=== PATIENT | female | born 1940 | race Caucasian/White ===

== ENCOUNTER 2017-08-27 09:59 | Emergency (ER) | payer MEDICARE, MEDICAID ==
[2017-08-27] MEDS ORDERED: APAP/HYDROCODONE 325/5 TAB PO ONE (10:35)
[2017-08-27 11:15] VITALS: BP 121/63
--- NOTE | 2017-08-27 11:27 | ER Report ---
History and Physical Time Seen By MD: 10:00 Hx. of Stated Complaint: patient has a j/g tube that was dislodged last night. 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 She has a G/ J tube. She is from [facility] and was about to leave for a trip to [place] last night when her to became dislodged at home back in [place]. She made the decision to leave the tube out, and started her trip towards [place] with her daughter. Not only did she have copious amounts of gastric contents spilling outside her abdomen, she was instructed by her surgeon this morning to stop at the nearest emergency department to have either a new tube or a Sloan catheter placed at the site. She is set to have a revision of the area next week when she returns from her trip to [place]. She does still take some by mouth but the tube was placed for additional nutrition given that her weight got below 85 pounds. Allergies: Coded Allergies: piperacillin (Verified Allergy, Severe, 08/27/17) tazobactam (Verified Allergy, Severe, 08/27/17) codeine (Verified Allergy, Intermediate, 08/27/17) povidone-iodine (Verified Allergy, Intermediate, 08/27/17) soap (Verified Allergy, Intermediate, 08/27/17) Home Meds Reported Medications Mirtazapine (MIRTAZAPINE) 15 Mg Tablet, 15 MG PO QHS 08/27/17 Gabapentin (GABAPENTIN) 300 Mg Capsule, 600 MG PO Q6H, CAPSULE 08/27/17 Pantoprazole Sodium (PANTOPRAZOLE SODIUM) 40 Mg Tablet.dr, 40 MG PO BID, TAB.SR 08/27/17 Aspirin (ASPIR 81) 81 Mg Tablet.dr, 81 MG PO QDAY, TAB 08/27/17 Pentoxifylline (PENTOXIFYLLINE) 400 Mg Tabsr, 400 MG PO TID 08/27/17 Ferrous Sulfate (FERROUS SULFATE) 325 Mg Tablet, 325 MG PO BID 08/27/17 Simvastatin (SIMVASTATIN) 20 Mg Tablet, 20 MG PO HS, TAB 08/27/17 Magnesium Oxide (MAGNESIUM OXIDE) 400 Mg Tablet, 400 MG PO TID 08/27/17 Cilostazol (CILOSTAZOL) 100 Mg Tablet, 100 MG PO QHS 08/27/17 Folic Acid (FOLIC ACID) 1 Mg Tablet, 1 MG PO QDAY, TAB 08/27/17 Hydroxychloroquine Sulfate (HYDROXYCHLOROQUINE SULFATE) 200 Mg Tablet, 200 MG PO QDAY 08/27/17 Bisoprolol Fumarate (BISOPROLOL FUMARATE) 5 Mg Tablet, 5 MG PO QDAY, #10 TAB 08/27/17 Cholecalciferol (Vitamin D3) (VITAMIN D3) 1,000 Unit Tablet, 1000 UNIT PO QDAY, TAB 08/27/17 Spironolactone (SPIRONOLACTONE) 25 Mg Tablet, 25 MG PO QDAY, TAB 08/27/17 Digoxin (DIGOXIN) 125 Mcg Tablet, 125 MCG PO QDAY 08/27/17 Reviewed Nurses Notes: Yes Hx Smoking: Yes Smoking Status: Former Smoker Exposure to Second Hand Smoke?: No Hx Substance Use Disorder: No Hx Alcohol Use: No Constitutional Vital Sign - Last 24 Hours 08/27/17 08/27/17 10:08 11:15 Temp 98.4 Pulse 72 95 Resp 20 B/P (MAP) 131/75 121/63 (82) Pulse Ox 96 O2 Delivery Room Air Physical Exam General Appearance: The patient is alert, has no immediate need for airway protection and no current signs of toxicity. Eyes: Pupils equal and round no injection. Respiratory: Chest is non tender, lungs are clear to auscultation. Cardiac: regular rate and rhythm Gastrointestinal: Abdomen is soft and non tender, no masses, bowel sounds normal. There is a stoma where the G/J tube used to be. Stomach contents is expelling from the site. The surrounding skin is erythematous and irritated. There is a small hole (.5mm) at the bottom of the stoma where stomach contents is also leaking. Skin: No rashes or lesions. DIFFERENTIAL DIAGNOSIS: After history and physical exam differential diagnosis was considered for cellulitis, tube displacement, infection Medical Decision Making ED Course/Re-evaluation ED Course This is a very pleasant 76-year-old female who is currently in route from [facility] to [place]. Her G/J tube fell out approximately 12 hours ago while she was at home. She did not bring the tube with her to the emergency department. Her plan was to just leave the tube out considering she is set for a revision of the site in one week when she returns from her trip. However when she called her surgeon this morning they told her to come to the emergency department to have a Sloan catheter placed in the site. I spoke with Suhail is the nurse at the surgeon's office. I explained to Josh that not only was the tube out of place but there is also stable at the base of the stoma her stomach contents were leaking. She is aware of the small at the bottom of the stoma, and said the plan was to have a revision done more immediately but the patient wanted to go on her trip. I told Josh that I had placed a 16 English Sloan catheter at the site without complications. I offered to go ahead and place a suture at the other open site that was also leaking, and the nurse at the surgeon's office said that would be a great thing to do. I sutured the area after 5 ml of lidocaine with epi. I placed 2 interrupted 2-0 silk sutures and closed the defect that had been leaking the stomach contents. There was no futhre leaking. I cleaned the area, placed a barrier cream, and dressed the area with 4x4's. She will follow up with her surgeon next week as planned. Decision to Disposition Date: Aug 27, 2017 Decision to Disposition Time: 13:00 Depart Departure Latest Vital Signs Vital Signs Date Time Temp Pulse Resp B/P (MAP) Pulse Ox O2 Delivery O2 Flow Rate FiO2 08/27/17 11:15 95 121/63 (82) 96 Room Air 08/27/17 10:08 98.4 20 Impression: Primary Impression: Attention to G-tube Condition: Improved Disposition: HOME OR SELF-CARE Departure Forms: ER Transition Record, Medications Reconciliation, Patient Portal Information Additional Instructions: If the G tube becomes dislodged, try to replace and refill the balloon. Keep area clean and dry LIZZIE FISHMAN MD Aug 27, 2017 11:27
[2017-08-27] MEDS ORDERED: CHOL10005 PO (11:53)
[2017-08-27] MEDS ORDERED: FOLI-68 PO (11:53)
[2017-08-27] MEDS ORDERED: HYDR200T42 PO (11:53)
[2017-08-27] MEDS ORDERED: CILO100T25 PO (11:53)
[2017-08-27] MEDS ORDERED: BISO5TAB23 PO (11:53)
[2017-08-27] MEDS ORDERED: SPIR25TA78 PO (11:53)
[2017-08-27] MEDS ORDERED: DIGO125T73 PO (11:53)
[2017-08-27] MEDS ORDERED: GABA-549 PO (11:54)
[2017-08-27] MEDS ORDERED: PANT40TA65 PO (11:54)
[2017-08-27] MEDS ORDERED: MAGN400T36 PO (11:54)
[2017-08-27] MEDS ORDERED: PEN400 PO (11:54)
[2017-08-27] MEDS ORDERED: FERR-53 PO (11:54)
[2017-08-27] MEDS ORDERED: ASPI-1471 PO (11:54)
[2017-08-27] MEDS ORDERED: SIMV-49 PO (11:54)
[2017-08-27] MEDS ORDERED: MIRT-22 PO (11:54)
== END 2017-08-27 11:32 | disposition home or self-care (01) ==
LOC: ER 10:00
DX: K94.23 Gastrostomy malfunction (principal)
CPT/HCPCS: 99283; A4338; A9270